=== PATIENT | female | born 1980 | race Caucasian/White ===

== ENCOUNTER 2018-12-16 12:03 | Emergency (ER) | payer OTHER ==
[~2018-12-16] VITALS: Ht 177.8 cm; Wt 90.7 kg
[2018-12-16] MEDS ORDERED: SERTRALINE HCL50 MG PO (12:28)
[2018-12-16] MEDS ORDERED: LETROZOLE2.5 MG PO (13:05)
[2018-12-16] MEDS ORDERED: ROBAXIN 750 MG750 MG PO (13:29)
[2018-12-16] MEDS ORDERED: NORCO 5-325 TA1 EAC1 PO (13:29)
[2018-12-16 14:16] VITALS: BP 138/80
== END 2018-12-16 14:20 | disposition home or self-care (01) ==
LOC: M.ERS 12:03
DX: M54.2 Cervicalgia (principal); R60.0 Localized edema; Z90.711 Acquired absence of uterus with remaining cervical stump; Z90.13 Acquired absence of bilateral breasts and nipples; Z85.3 Personal history of malignant neoplasm of breast; Z90.49 Acquired absence of other specified parts of digestive tract